=== PATIENT | male | born 1965 ===

== ENCOUNTER 2019-09-23 05:37 | Day surgery (SDC) | payer OTHER | END 2019-09-23 14:00 | disposition home or self-care (01) | LOC: AMB-ENDOS 05:37 | DX: D12.0 Benign neoplasm of cecum (principal); K64.8 Other hemorrhoids ==

== ENCOUNTER 2019-11-27 08:30 | Inpatient (IN) | payer OTHER ==
[~2019-11-27] VITALS: Ht 167.6 cm; Wt 97.1 kg
[2019-11-27] MEDS ORDERED: TENORMIN50 M1 PO (10:38)
[2019-11-27] MEDS ORDERED: AVAPRO300 MG PO (10:38)
[2019-11-27] MEDS ORDERED: SYNTHROID137 MCG PO (10:38)
== END 2019-12-10 11:02 | disposition home or self-care (01) | DRG 330 ==
LOC: EDSTATUS 08:30 → ADM 08:30 → O/R 12-04 07:27 → SURH 12-04 07:27 → O/R 12-08 11:52 → SURH 12-08 12:19
PROVIDERS: ADMIT Colon & Rectal Surgery
PROC: 07TB4ZZ Resection of Mesenteric Lymphatic, Percutaneous Endoscopic Approach (ICD-10-PCS; 2019-12-04)
PROC: 0DTF4ZZ Resection of Right Large Intestine, Percutaneous Endoscopic Approach (ICD-10-PCS; principal; 2019-12-04 12:45)
PROC: BT43ZZZ Ultrasonography of Bilateral Kidneys (ICD-10-PCS; 2019-12-05)
PROC: BW21Y0Z Computerized Tomography (CT Scan) of Abdomen and Pelvis using Other Contrast, Unenhanced and Enhanced (ICD-10-PCS; 2019-12-08)
PROC: 0DH67UZ Insertion of Feeding Device into Stomach, Via Natural or Artificial Opening (ICD-10-PCS; 2019-12-08)
PROC: 3E0G76Z Introduction of Nutritional Substance into Upper GI, Via Natural or Artificial Opening (ICD-10-PCS; 2019-12-08)
DX: D12.0 Benign neoplasm of cecum (principal); N17.8 Other acute kidney failure; K91.31 Postprocedural partial intestinal obstruction; E44.0 Moderate protein-calorie malnutrition; D12.2 Benign neoplasm of ascending colon; N99.0 Postprocedural (acute) (chronic) kidney failure; K62.1 Rectal polyp; R59.0 Localized enlarged lymph nodes; I10 Essential (primary) hypertension